=== PATIENT | female | born 1960 | race Caucasian/White ===

== ENCOUNTER → 2016-08-30 | Day surgery (SDC) | payer OTHER ==
[2016-08-30 12:11] VITALS: BP 128/80; PULSE 81; RESP 16; TEMP 97.6
--- NOTE | 2016-09-08 12:45 | PCN ---
DATE OF PROCEDURE: 08/30/2016 BRIEF HISTORY: Patient is a 56-year-old pleasant, white female last scheduled for ambulatory pH study as a part evaluation of chronic gastroesophageal reflux symptoms of more than 10 years' duration. She is presently maintained on Protonix 40 mg twice daily, Reglan 5 mg at bedtime and Pepcid as needed at bedtime. Despite which for the last 3 years has been symptomatic. She is scheduled for a pH study while she is on the medications to see for extent of acid suppression. PROCEDURE PERFORMED: Ambulatory impedance pH monitoring study. PROCEDURE: After informed consent was obtained from the patient, she was brought into the endoscopy unit. The esophageal pH probe was adequately calibrated, was passed through the external nostril and was gently advanced through the distal esophagus and into the stomach. The study was performed for a total of 23 hours and 55 minutes. Following are the study results: 1. Acid exposure - Upright reflux is 2.9%. Recumbent reflux 0%. Total reflux 1.7% and ( ) is normal less than 4.2%. 2. Longest episode 1.6 minute (normal less than 3 minutes.) 3. Ghulam DeMeester score analysis is 7.3 (normal less than 14.) 4. Reflux episode activities: Acid reflux episodes 47, nonacid reflux episodes 24, total acid reflux episodes 71 (normal less than 73.) 5. Symptom index: Chest pain 20%, heartburn 67%. INTERPRETATION: The above esophageal pH study shows some physiologic acid reflux, but no evidence of pathological acid reflux on current acid suppressive therapy.
== END ==
LOC: ORWHC2ENDO 11:54
PROVIDERS: ATTEND Internal Medicine Gastroenterology
DX: K21.9 Gastro-esophageal reflux disease without esophagitis (principal)
CPT/HCPCS: 91038